=== PATIENT | female | born 1990 | race Caucasian/White ===

== ENCOUNTER 2018-07-23 10:10 | Inpatient (IN) | payer MEDICAID ==
[2018-07-23] MEDS ORDERED: fentaNYL 12 MCG PATCH TD SCH (15:30)
[2018-07-23] MEDS: morphINE SR 15 MG TAB PO SCH ×2 (15:51→21:18)
[2018-07-23] MEDS: oxyCODONE IR 5 MG TAB PO PRN ×2 (15:51→22:55)
--- NOTE | 2018-07-23 16:51 | GHP ---
[f rep st] HISTORY AND PHYSICAL DATE OF ADMISSION: 07/23/2018 TIME OF EVALUATION: 1515 hours. REFERRING FACILITY: [facility]. REFERRING PHYSICIAN: Dr. Bonds IMPAIRMENT GROUP: [id number]. DATE OF ONSET: 07/15/2018. REHABILITATION DIAGNOSIS: Left leg weakness due to cervical spine stenosis status post C5-C6 anterior decompression. ETIOLOGIC DIAGNOSIS: Other nontraumatic spinal cord dysfunction. DATE OF SURGERY: 07/18/2018. HISTORY OF PRESENT ILLNESS: This patient has a history of spina bifida and has chronic weakness and reduced sensation to her bilateral lower extremities. 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 She developed acute onset left lower extremity loss of sensation and weakness, and after 4 days presented to [facility]. She was transferred from there to [facility] for a subspecialty consultation. MRI of the spine revealed cervical spinal stenosis with disk protrusion at the C5-C6 level. Consideration was also given to the possibility of a repeat procedure for tethering of the spinal cord. 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 She opted for cervical spine surgery as it is lower risk than a possible de-tethering procedure and she has had some improvement after this surgery. Surgery was done on 07/18/2018. There were no hospital complications noted. STUDIES AND LABS IN THE HOSPITAL: Urinalysis on 07/16/2018 was consistent with possible UTI. Urine culture grew more than 10,000 CFU per mL of lactobacillus and 1000-10,000 CFU of Staphylococcus species. Prior to her surgery on 2018, coagulation studies revealed normal PT and PTT. Basic metabolic profile was normal, but for a low creatinine at 0.42. CBC was normal. Blood type was O positive. PRECAUTIONS: She is a fall risk. She has orthopedic spinal precautions at the neck. ACTIVE COMORBIDITIES: She has no tier 1, tier 2, or tier 3 active comorbidities. PAST MEDICAL HISTORY: 1. Spina bifida. 2. Pulmonary embolus. 3. Neurogenic bowel and bladder. 4. Cholecystitis. PAST SURGICAL HISTORY: 1. She has had multiple bladder surgeries and she has had lithotripsy for kidney stones. 2. section x3. 3. Cholecystectomy. 4. Hernia repair. 5. Right leg [id number] amputation. 6. Release of tethered spine x4. PRE-HOSPITAL MEDICATIONS: 1. Baclofen 5 mg p.o. b.i.d. 2. Fentanyl transdermal 12 mcg/hour, changed q. 72 hours. 3. Morphine 15 mg p.o. t.i.d. 4. Esomeprazole 20 mg p.o. daily. 5. Oxycodone 5 to 10 mg p.o. t.i.d. p.r.n. 6. Trazodone 50-100 mg p.o. at bedtime. ADMISSION MEDICATIONS: 1. Baclofen 5 mg p.o. b.i.d. 2. Fentanyl transdermal 12 mcg/hour, changed q. 72 hours. 3. Morphine 15 mg p.o. t.i.d. 4. Melatonin 3 mg p.o. At bedtime 5, K-Phos twice daily with meals 6. Esomeprazole 20 mg p.o. daily. 7. Oxycodone 5 to 10 mg p.o. t.i.d. p.r.n. 8. Trazodone 50-100 mg p.o. at bedtime. ALLERGIES: She is allergic to latex and to penicillin, both of which caused anaphylaxis. SOCIAL HISTORY: She is and lives with her . She has a job working at a [employer] center. She is a nonsmoker and nondrinker. She has 3 children at home, aged 3, 6, and 8 years old. FAMILY HISTORY: Noncontributory. There is no history of blood clots. REVIEW OF SYSTEMS: She has some pain with swallowing, but no coughing with swallowing. She takes small bites. Her weight has been stable. She has no fevers or chills. She does not normally require laxatives despite her large opiate dose, though laxatives were being used in the hospital. She has a good appetite. She has no dysuria. She self-catheterizes approximately 6 times a day. She has no headaches; vision changes; weakness, numbness or tingling of the upper extremities. She has noted return of some movement to her left lower extremity with quadriceps extension and hamstring flexion, but she has no flexion at the hip. She sleeps well, does not snore and feels refreshed in the morning. Otherwise, a 10-point review of systems is negative. PHYSICAL EXAM: VITAL SIGNS: Blood pressure 132/82, heart rate 93, respiratory rate 15, oxygen saturation 94% on room air. Temperature 36.9 degrees centigrade. Her weight is not yet available in the chart. GENERAL: This is a well-nourished, well developed, overweight to obese appearing woman sitting in a wheelchair, dressed in street clothes, cooperative, and in no acute distress. HEENT: Extraocular movements are intact. Pupils are equal, round, and reactive to light. Mucous membranes are moist. Dentition is in good condition. She has a crowded airway, Mallampati class 4. NECK: Supple. HEART : There is a regular rate and rhythm with no murmurs, rubs, or gallops. LUNGS : Clear to auscultation bilaterally. ABDOMEN: Soft, nontender, nondistended with normoactive bowel sounds and no hepatosplenomegaly. EXTREMITIES: She has a right leg amputation below the knee. Radial pulses are 2+ bilaterally. Pedal pulses are nonpalpable, but dorsalis pedis pulse can be found by ultrasound. Capillary refill on her foot is prolonged. Her left foot is cold. She has 1+ edema to the left lower extremity. She wears an AFO. NEUROLOGIC: She is alert and oriented x3. Cranial nerves 2-12 are grossly intact. Upper extremities are overall 5/5, though her triceps are approximately 4/5 bilaterally. She appears to have normal movement of the right lower extremity. Left lower extremity does not have antigravity strength at the hip flexor. Her quadriceps is 3/5 to 4/5. Hamstring is 3/5. There is no dorsiflexion or plantar flexion of the foot or great toe. Sensation in the left lower leg is absent over the foot and lower leg, and is present to light palpation starting just above the knee. She reports that this has improved since her surgery with sensory level going further down her leg. SKIN: Neck incision appears to be glued with Steri-Strips. There is no erythema and no discharge. CURRENT LEVEL OF FUNCTION PER THE PREADMISSION SCREEN: She needed setup for feeding. She needed maximal assistance for grooming, maximal assist for bathing , maximal assist for dressing, and maximal assist for toileting. She was able to self-catheterize her bladder. Bed mobility required minimal assist. Transfers bed to wheelchair were done with a lateral scoot with minimal assist. She used a manual wheelchair. Balance seated required standby assist at the edge of the bed. Endurance was decreased from baseline. She was able to self- propel wheelchair 60 feet with standby assist. Communication and cognition were considered to be within normal limits. On today's exam, there are no significant changes from preadmission screen. IMPRESSION: This is a 28-year-old woman with a history of spina bifida and medical complications which have included need for a right foot amputation after a traumatic injury, who developed acute loss of sensation and weakness of the left lower extremity. She reports that it was unclear whether it was due to cervical spinal stenosis at the C5-6 level or complications of tethered spinal cord. She proceeded with C5-C6 anterior cervical decompression and she has had some improvement in her motor symptoms and sensation in the left lower extremity. She has neurogenic bowel and bladder which she manages effectively at home with self-catheterization. She reports she does not need bowel medications at home. She has history of pulmonary embolus and reports that she was on warfarin for several months since occurrence in November of last year, but that it was discontinued partly because of difficulty in maintaining stable INR. She has needs for rehabilitation to optimize her mobility and activities of daily living towards returning to home with a maximum level of independence. She intends to be able to continue caring for her children and to return to work if possible. For safe discharge, she will need to be able to progress to independent to supervision level for ADLs and functional mobility from wheelchair level. She will need to have effective pain and symptom management. She will have therapy with Physical Therapy and Occupational Therapy for 90 minutes per day for each discipline on 5-7 days per week. Her expected duration of stay is 10-14 days. It is expected that after discharge she will benefit from home health with Nursing and Occupational Therapy. PLAN: 1. Debility with left lower extremity weakness and history of right leg below- the-knee amputation status post C5-C6 anterior decompression. She has had some improvement in sensation and movement to the left lower extremity. She will have physical therapy and occupational therapy to optimize her mobility and activities of daily living towards the independent or supervision level from her wheelchair. 2. Postsurgical status. Continue current pain medications and monitor wound for healing. Question of spinal precautions needs to be clarified. 3. Neurogenic bladder. Continue self-catheterization. 4. History of pulmonary embolus. We will treat prophylactically with enoxaparin during her rehab stay. Doubt that will need to be continued after her discharge home, as she will likely be back to her baseline risk. She reports that she had 3 months of warfarin after a pulmonary embolus, but had difficulty with control of INR. 5. Spasticity which affects her left side and her left leg she reports has been effectively treated with baclofen at 5 mg twice daily and this will be continued. 6. Gastroesophageal reflux disorder. Continue esomeprazole. 7. Prophylaxis. We will place on enoxaparin for deep vein thrombosis prophylaxis. She takes esomeprazole for gastroesophageal reflux disorder and this will also serve us for protection against gastrointestinal bleed while on esomeprazole. /[id number]/MODL MTDD
[2018-07-23] MEDS: POTASSIUM PHOSPHATE MONOBASIC PO SCH (17:23)
[2018-07-23] MEDS ORDERED: MELATONIN 3 MG TAB PO SCH (21:00)
[2018-07-23] MEDS: BACLOFEN 10 MG TAB PO SCH (21:18)
[2018-07-23] MEDS: traZODone 50 MG TAB PO PRN (22:54)
[2018-07-24] MEDS: morphINE SR 15 MG TAB PO SCH ×3 (06:49→21:03)
[2018-07-24] MEDS: ENOXAPARIN 40 MG/0.4 ML SYR SC SCH (07:18)
[2018-07-24] MEDS: BACLOFEN 10 MG TAB PO SCH ×2 (08:33→21:04)
[2018-07-24] MEDS: PANTOPRAZOLE SODIUM 40 MG TAB PO SCH (08:33)
[2018-07-24] MEDS: oxyCODONE IR 5 MG TAB PO PRN ×2 (10:13→13:23)
--- NOTE | 2018-07-24 10:54 | SOAPPROG ---
SOAP Progress Note Assessment/Plan: Assessment: Debility with left lower extremity weakness and history of right leg below-the- knee amputation status post C5-C6 anterior decompression. She has had some improvement in sensation and movement to the left lower extremity. She will have physical therapy and occupational therapy to optimize her mobility and activities of daily living towards the independent or supervision level from her wheelchair. Postsurgical status. Continue current pain medications and monitor wound for healing. Discussed question of spinal precautions with Samantha, nurse for neurosurgeon Dr. Bonds, 07/23/2018, . She is allowed gentle range of motion of the neck but no twisting, no bending at the waist, and no lifting greater than 10 lb, until followup with Dr. Bonds in approximately 6 weeks. Pain management. Continue current opiate regimen. Neurogenic bladder. Continue self-catheterization. History of pulmonary embolus. We will treat prophylactically with enoxaparin during her rehab stay. Doubt that will need to be continued after her discharge home, as she will likely be back to her baseline risk. She reports that she had 3 months of warfarin after a pulmonary embolus, but had difficulty with control of INR. Spasticity which affects her left side and her left leg she reports has been effectively treated with baclofen at 5 mg twice daily and this will be continued. Gastroesophageal reflux disorder. Continue pantoprazole. No indication for continued potassium phosphate supplement. Discontinue starting 07/23/2018. Prophylaxis. We will place on enoxaparin for deep vein thrombosis prophylaxis. She takes esomeprazole for gastroesophageal reflux disorder and this will also serve us for protection against gastrointestinal bleed while on esomeprazole. Pantoprazole has been substituted per hospital formulary. Follow-up. She is to see neurosurgeon Dr. Bonds in approximately 6 weeks ( approximately 09/03/2018). She has an appointment for evaluation for a new wheelchair on 07/31/2018. 07/24/18 11:42 Subjective: Had poor sleep overnight. She found her usual side-lying sleeping position to be uncomfortable on her neck. For she tried melatonin which had no affect, then she took 50 mg of trazodone. She had fatigue this morning. This evening she plans to take 100 mg of trazodone. Discussed prescription for potassium phosphate. She says that it was prescribed during her when she had a low potassium, and she has continued since then. Otherwise without complaints. No fevers or chills, no cough or dyspnea. Objective: Vital Signs Temp Pulse Resp BP Pulse Ox 36.7 C 84 15 124/75 H 94 07/24/18 06:02 07/24/18 06:02 07/24/18 06:02 07/24/18 06:02 07/24/18 06:02 07/23/18 07/24/18 07/25/18 05:59 05:59 05:59 Intake Total 590 125 Output Total 825 125 Balance -235 0 Physical Exam - Physical Exam General Appearance: WD/WN, alert, no apparent distress Respiratory: normal breath sounds, crackles (Right lower lobe), No rhonchi, No wheezing Cardiac/Chest: regular rate, rhythm, No diastolic murmur, No systolic murmur Skin: normal color, warm/dry, other (Neck incision without erythema or drainage) Neuro/Psych: alert, normal mood/affect, oriented x 3, other (Self propels wheelchair independently) ICD10 Worksheet Patient Problems: Problems Problem Status Onset History of cervical spinal surgery Acute Left leg weakness Acute Spina bifida Acute - ICD10 Problem Qualifiers (1) Left leg weakness (2) History of cervical spinal surgery (3) Spina bifida
[2018-07-24] MEDS: POTASSIUM PHOSPHATE MONOBASIC PO SCH (12:24)
[2018-07-24] MEDS: traZODone 50 MG TAB PO PRN (21:03)
[2018-07-25] MEDS: oxyCODONE IR 5 MG TAB PO PRN ×2 (03:22→12:23)
[2018-07-25] MEDS: ENOXAPARIN 40 MG/0.4 ML SYR SC SCH (07:16)
[2018-07-25] MEDS: fentaNYL 12 MCG PATCH TD SCH (08:58)
[2018-07-25] MEDS: BACLOFEN 10 MG TAB PO SCH ×2 (09:02→20:45)
[2018-07-25] MEDS: PANTOPRAZOLE SODIUM 40 MG TAB PO SCH (09:03)
[2018-07-25] MEDS: morphINE SR 15 MG TAB PO SCH ×3 (09:03→22:05)
--- NOTE | 2018-07-25 09:58 | SOAPPROG ---
SOAP Progress Note Assessment/Plan: Assessment: Debility with left lower extremity weakness and history of right leg below-the- knee amputation status post C5-C6 anterior decompression. She has had some improvement in sensation and movement to the left lower extremity. * Initial functional independence measure is 98 on 07/25/2018. She transfers with a sliding board with standby assist. The sliding board is a new technique for her. She is modified independence for bed mobility. She is able to stand 15 sec with standby assist and a front wheeled walker. She required contact guard assist for shower transfer and is otherwise standby assist for ADLs except for eating in which she is independent. * Continue physical therapy and occupational therapy to optimize her mobility and activities of daily living towards the independent or supervision level from her wheelchair. Postsurgical status. Continue current pain medications and monitor wound for healing. Discussed question of spinal precautions with Samantha, nurse for neurosurgeon Dr. Bonds, 07/23/2018, . She is allowed gentle range of motion of the neck but no twisting, no bending at the waist, and no lifting greater than 10 lb, until followup with Dr. Bonds in approximately 6 weeks. Pain management. Continue current opiate regimen. Neurogenic bladder. Continue self-catheterization. History of pulmonary embolus. We will treat prophylactically with enoxaparin during her rehab stay. Doubt that will need to be continued after her discharge home, as she will likely be back to her baseline risk. She reports that she had 3 months of warfarin after a pulmonary embolus in November of 2017 , but had difficulty with control of INR. Spasticity which affects her left side and her left leg she reports has been effectively treated with baclofen at 5 mg twice daily and this will be continued. Gastroesophageal reflux disorder. Continue pantoprazole. No indication for continued potassium phosphate supplement. Discontinue starting 07/23/2018. Prophylaxis. We will place on enoxaparin for deep vein thrombosis prophylaxis. She takes esomeprazole for gastroesophageal reflux disorder and this will also serve us for protection against gastrointestinal bleed while on esomeprazole. Pantoprazole has been substituted per hospital formulary. DISPOSITION: Attended staffing, 15 min, 07/25/2018. Discussed with nursing, case management, dietitian, PT, OT. She lives at home with her who does not work but assists in childcare. Her [id number] is there also provides considerable assistance. Their 3 children aged 8 6 and 3 years old. Plan for discharge home with assistance from family on 07/28/2018. Follow-up. She is to see neurosurgeon Dr. Bonds in approximately 6 weeks ( approximately 09/03/2018). She has an appointment for evaluation for a new wheelchair on 07/31/2018. JUSTIFICATION FOR SLIDING BOARD: This patient needs a sliding board due to left lower extremity weakness and right lower extremity amputation. 07/25/18 12:22 Subjective: No complaints. She reports pain is with swallowing is improved but she is still cutting her food into small bites. She slept well last night. No cough or dyspnea, no fevers or chills. Objective: Vital Signs Temp Pulse Resp BP Pulse Ox 36.9 C 88 18 104/67 96 07/25/18 06:08 07/25/18 06:08 07/25/18 06:08 07/25/18 06:08 07/25/18 06:08 07/24/18 07/25/18 07/26/18 05:59 05:59 05:59 Intake Total 590 1050 150 Output Total 825 1025 75 Balance -235 25 75 - Time Spent With Patient Time Spent With Patient: Greater than 35 min floor time today, including more than 50% of time in coordination of care during staffing meeting, and counseling patient. Physical Exam - Physical Exam General Appearance: WD/WN, alert, no apparent distress Respiratory: normal breath sounds, No crackles, No rhonchi, No wheezing Cardiac/Chest: regular rate, rhythm, edema (Minimal edema verses pretibial fat, left lower leg.), No diastolic murmur, No systolic murmur Skin: normal color, warm/dry, other (Incision without erythema or drainage) Neuro/Psych: alert, normal mood/affect, oriented x 3 (Continues to have improved left quadriceps strength. Left hip flexor is 0 to 1/5) ICD10 Worksheet Patient Problems: Problems Problem Status Onset History of cervical spinal surgery Acute Left leg weakness Acute Spina bifida Acute - ICD10 Problem Qualifiers (1) Left leg weakness (2) History of cervical spinal surgery (3) Spina bifida
--- NOTE | 2018-07-25 10:33 | PDOREHIP ---
Admission [facility] - Admission - 3 Day Assessment Period Admission Date/Day 1: 07/23/18 Day 2: 07/24/18 Day 3: 07/25/18 - Active Diagnoses Comorbidities and Co-existing Conditions at Admission: 76738. None of the Above - Skin Conditions Unhealed Pressure Ulcer (1 or more/Stage 1 or >)-Admission: 0. No # Stage 1 Pressure Ulcers-Admission: 0 # Stage 2 Pressure Ulcers-Admission: 0 # Stage 3 Pressure Ulcers-Admission: 0 # Stage 4 Pressure Ulcers-Admission: 0 # Unstageable Pressure Ulcers (Non-remove Dress)-Admission: 0 # Unstageable Pressure Ulcers (Slough/Eschar)-Admission: 0 # Unstageable Pressure Ulcers (Deep Tissue Injury)-Admission: 0
[2018-07-25] MEDS: traZODone 50 MG TAB PO PRN (20:45)
[2018-07-25] MEDS: MELATONIN 3 MG TAB PO PRN (22:06)
[2018-07-26] MEDS: oxyCODONE IR 5 MG TAB PO PRN ×3 (04:02→18:04)
[2018-07-26] MEDS: BACLOFEN 10 MG TAB PO SCH ×2 (07:54→20:31)
[2018-07-26] MEDS: PANTOPRAZOLE SODIUM 40 MG TAB PO SCH (07:54)
[2018-07-26] MEDS: ENOXAPARIN 40 MG/0.4 ML SYR SC SCH (07:55)
[2018-07-26] MEDS: morphINE SR 15 MG TAB PO SCH ×3 (07:55→22:06)
--- NOTE | 2018-07-26 08:48 | SOAPPROG ---
SOAP Progress Note Assessment/Plan: Assessment/Plan: Debility with left lower extremity weakness and history of right leg below-the- knee amputation status post C5-C6 anterior decompression. She has had some improvement in sensation and movement to the left lower extremity. * Initial functional independence measure is 98 on 07/25/2018. She transfers with a sliding board with standby assist. The sliding board is a new technique for her. She is modified independence for bed mobility. She is able to stand 15 sec with standby assist and a front wheeled walker. She required contact guard assist for shower transfer and is otherwise standby assist for ADLs except for eating in which she is independent. * Continue physical therapy and occupational therapy to optimize her mobility and activities of daily living towards the independent or supervision level from her wheelchair. Postsurgical status. Continue current pain medications and monitor wound for healing. Discussed question of spinal precautions with Samantha, nurse for neurosurgeon Dr. Bonds, 07/23/2018, . She is allowed gentle range of motion of the neck but no twisting, no bending at the waist, and no lifting greater than 10 lb, until followup with Dr. Bonds in approximately 6 weeks. Pain management. Continue current opiate regimen. Neurogenic bladder. Continue self-catheterization. History of pulmonary embolus. We will treat prophylactically with enoxaparin during her rehab stay. Doubt that will need to be continued after her discharge home, as she will likely be back to her baseline risk. She reports that she had 3 months of warfarin after a pulmonary embolus in November of 2017 , but had difficulty with control of INR. Spasticity which affects her left side and her left leg she reports has been effectively treated with baclofen at 5 mg twice daily and this will be continued. Gastroesophageal reflux disorder. Continue pantoprazole. No indication for continued potassium phosphate supplement. Discontinue starting 07/23/2018. Prophylaxis. We will place on enoxaparin for deep vein thrombosis prophylaxis. She takes esomeprazole for gastroesophageal reflux disorder and this will also serve us for protection against gastrointestinal bleed while on esomeprazole. Pantoprazole has been substituted per hospital formulary. DISPOSITION: Discussed with nursing, She lives at home with her who does not work but assists in childcare. Her [id number] is there also provides considerable assistance. Their 3 children aged 8 6 and 3 years old. Plan for discharge home with assistance from family on 07/28/2018. Follow-up. She is to see neurosurgeon Dr. Bonds in approximately 6 weeks ( approximately 09/03/2018). She has an appointment for evaluation for a new wheelchair on 07/31/2018. 07/26/18 08:45 Subjective: Feeling pretty good this morning. Is reporting slight increase in spasm - only at night. otherwise has only seen improvement in her neurologic status since the cervical ACDF. Anxious to get back home to her children and her . Feels this has been good to learn some new techniques regarding transfers. managing bowel/bladder well. Objective: Vital Signs Temp Pulse Resp BP Pulse Ox 98.3 F 84 15 140/86 H 96 07/26/18 06:27 07/26/18 06:27 07/26/18 06:27 07/26/18 06:27 07/26/18 06:27 07/25/18 07/26/18 07/27/18 05:59 05:59 05:59 Intake Total 1050 670 Output Total 1025 800 125 Balance 25 -130 -125 Physical Exam - Physical Exam General Appearance: alert, no apparent distress EENT: PERRL/EOMI, other (mmm) Respiratory: other (Non labored breathing, no audible wheezing) Cardiac/Chest: regular rate, rhythm Abdomen: non-tender Skin: normal color Extremities: other (Right BKA) Neuro/Psych: alert, normal mood/affect ICD10 Worksheet Patient Problems: Problems Problem Status Onset History of cervical spinal surgery Acute Left leg weakness Acute Spina bifida Acute
[2018-07-26] MEDS ORDERED: BACLOFEN 10 MG TAB PO SCH ×2 (09:00→21:00)
[2018-07-26] MEDS: MELATONIN 3 MG TAB PO PRN (20:30)
[2018-07-26] MEDS: traZODone 50 MG TAB PO PRN ×2 (20:30→22:08)
[2018-07-27] MEDS: oxyCODONE IR 5 MG TAB PO PRN ×2 (06:03→13:31)
[2018-07-27] MEDS: morphINE SR 15 MG TAB PO SCH ×3 (08:52→21:16)
[2018-07-27] MEDS: BACLOFEN 10 MG TAB PO SCH ×2 (08:52→21:16)
[2018-07-27] MEDS: PANTOPRAZOLE SODIUM 40 MG TAB PO SCH (08:52)
[2018-07-27] MEDS: ENOXAPARIN 40 MG/0.4 ML SYR SC SCH (08:53)
--- NOTE | 2018-07-27 09:10 | SOAPPROG ---
SOAP Progress Note Assessment/Plan: Assessment/Plan: #Debility with left lower extremity weakness and history of right leg below-the- knee amputation status post C5-C6 anterior decompression. She has had some improvement in sensation and movement to the left lower extremity. * Initial functional independence measure is 98 on 07/25/2018. She transfers with a sliding board with standby assist. The sliding board is a new technique for her. She is modified independence for bed mobility. She is able to stand 15 sec with standby assist and a front wheeled walker. She required contact guard assist for shower transfer and is otherwise standby assist for ADLs except for eating in which she is independent. * Continue physical therapy and occupational therapy to optimize her mobility and activities of daily living towards the independent or supervision level from her wheelchair. #Postsurgical status. * Continue current pain medications and monitor wound for healing. * Discussed question of spinal precautions with Samantha, nurse for neurosurgeon Dr. Bonds, 07/23/2018, . She is allowed gentle range of motion of the neck but no twisting, no bending at the waist, and no lifting greater than 10 lb , until followup with Dr. Bonds in approximately 6 weeks. #Pain management * Continue current opiate regimen. * Added Voltaren Gel for LLE #Neurogenic bladder. * Continue self-catheterization - Going well without concerns History of pulmonary embolus * enoxaparin during her rehab stay. Doubt that will need to be continued after her discharge home, as she will likely be back to her baseline risk. She reports that she had 3 months of warfarin after a pulmonary embolus in November of 2017, but had difficulty with control of INR. Spasticity - affects her left leg mostly * Increased Baclofen to 5mg qam and then 10mg qpm * May trial a small dose gabapentin at night to help with the spasm * Will also add Voltaren Gel Gastroesophageal reflux disorder. * pantoprazole. No indication for continued potassium phosphate supplement. * Discontinued 07/23/2018. Prophylaxis. We will place on enoxaparin for deep vein thrombosis prophylaxis. She takes esomeprazole for gastroesophageal reflux disorder and this will also serve us for protection against gastrointestinal bleed while on esomeprazole. Pantoprazole has been substituted per hospital formulary. DISPOSITION: Discussed with nursing, She lives at home with her who does not work but assists in childcare. Her [id number] is there also provides considerable assistance. Their 3 children aged 8 6 and 3 years old. Plan for discharge home with assistance from family on 07/28/2018. Follow-up. She is to see neurosurgeon Dr. Bonds in approximately 6 weeks ( approximately 09/03/2018). She has an appointment for evaluation for a new wheelchair on 07/31/2018. 07/27/18 09:03 Subjective: Doing pretty well today - Did have a bit of a rougher night last night with spasms. [place] she potentially "overdid" it yesterday with therapy. Hasn't had that much therapy to the left leg for a long time. [place] like she was able to localize pain much better than she's ever been able to do before. no fevers/ chills. Excited about her upcoming discharge Objective: Vital Signs Temp Pulse Resp BP Pulse Ox 97.9 F 75 16 117/69 96 07/27/18 05:51 07/27/18 05:51 07/27/18 05:51 07/27/18 05:51 07/27/18 05:51 07/26/18 07/27/18 07/28/18 05:59 05:59 05:59 Intake Total 670 710 Output Total 800 725 Balance -130 -15 Physical Exam - Physical Exam General Appearance: alert, no apparent distress EENT: PERRL/EOMI Neck: other (Steristrips on the anterior neck. Well healing incision without evidence of infection) Respiratory: other (non labored breathing) Cardiac/Chest: regular rate, rhythm Abdomen: non-tender, soft Skin: normal color, warm/dry Extremities: other (Right BKA) Neuro/Psych: normal mood/affect ICD10 Worksheet Patient Problems: Problems Problem Status Onset History of cervical spinal surgery Acute Left leg weakness Acute Spina bifida Acute
[2018-07-27] MEDS ORDERED: DICLOFENAC SODIUM 1% 100 GM GEL TP PRN (09:20)
[2018-07-27] MEDS ORDERED: GABAPENTIN 300 MG CAP PO SCH (21:00)
[2018-07-27] MEDS: traZODone 50 MG TAB PO PRN (21:16)
[2018-07-28] MEDS: oxyCODONE IR 5 MG TAB PO PRN ×2 (05:54→11:40)
[2018-07-28 07:39] VITALS: BP 133/80
[2018-07-28] MEDS: fentaNYL 12 MCG PATCH TD SCH (08:07)
[2018-07-28] MEDS: BACLOFEN 10 MG TAB PO SCH (08:08)
[2018-07-28] MEDS: PANTOPRAZOLE SODIUM 40 MG TAB PO SCH (08:09)
[2018-07-28] MEDS: morphINE SR 15 MG TAB PO SCH (08:09)
[2018-07-28] MEDS: ENOXAPARIN 40 MG/0.4 ML SYR SC SCH (09:51)
--- NOTE | 2018-07-28 11:08 | PDOREHIP ---
Admission [facility] - Admission - 3 Day Assessment Period Admission Date/Day 1: 07/23/18 Day 2: 07/24/18 Day 3: 07/25/18 - Active Diagnoses Comorbidities and Co-existing Conditions at Admission: 39512. None of the Above Discharge [facility] - Discharge - 3 Day Assessment Period 2 Days Prior to Anticipated Discharge Date: 07/26/18 1 Day Prior to Anticipated Discharge Date: 07/27/18 Anticipated Discharge Date: 07/28/18 - Discharge Skin Conditions Unhealed Pressure Ulcer (1 or more/Stage 1 or >)-Discharge: 0. No # Stage 1 Pressure Ulcers-Discharge: 0 # Stage 2 Pressure Ulcers-Discharge: 0 # of These Stage 2 Pressure Ulcers Present on Admission: 0 # Stage 3 Pressure Ulcers-Discharge: 0 # of These Stage 3 Pressure Ulcers Present on Admission: 0 # Stage 4 Pressure Ulcers-Discharge: 0 # of These Stage 4 Pressure Ulcers Present on Admission: 0 # Unstageable Pressure Ulcers (Non-remove Dress)-Discharge: 0 # These Unstageable Pressure Ulcers (NRD)-Present on Admit: 0 # Unstageable Pressure Ulcers (Slough/Eschar)-Discharge: 0 # These Unstageable Pressure Ulcers(Slough) Present on Admit: 0 # Unstageable Pressure Ulcers (Deep Tissue Injury)-Discharge: 0 # These Unstageable Pressure Ulcers (DTI) Present on Admit: 0
--- NOTE | 2018-07-28 20:53 | GDS ---
[f rep st] DISCHARGE SUMMARY ADMITTING DIAGNOSIS: Left lower extremity weakness, status post C5-6 anterior cervical diskectomy and fusion DISCHARGE DIAGNOSIS: Left lower extremity weakness, status post C5-6 anterior cervical diskectomy and fusion. OTHER DISCHARGE DIAGNOSES: 1. History of right lower extremity [id number] amputation. 2. Chronic pain. 3. Neurogenic bladder. 4. History of pulmonary embolus. 5. Gastroesophageal reflux disorder. COMPLICATIONS: None. CONSULTATIONS: None. PROCEDURES: None. HISTORY AND HOSPITAL COURSE: This patient was admitted from [facility] where she had a C5-C6 ACDF per neurosurgeon, Dr. Bonds, for left leg weakness. She has a history of spina bifida and has had 4 prior detethering procedures for her lumbar spine. She reports that she elected this C5-6 ACDF rather than a detethering procedure due to the lower- risk nature of the cervical surgery. She had some improvement in her left leg strength after the surgery. There were no postoperative complications; however , she was diagnosed with a urinary tract infection and was treated during her hospitalization. Urine culture results had shown more than 10,000 CFU per mL of lactobacillus and 1,000 to 10,000 CFU per mL of staphylococci species. She did well in rehabilitation. Her goal was to improve her transfers, and she learned how to transfer with a sliding board. She developed independence with bed mobility and transfers using a sliding board. She was able to self-propel a wheelchair as far as 400 feet on level and unlevel surfaces both inside and outside independently. She was able to carry out activities of daily living with independence or modified independence using assistive devices. She continued her outpatient opiate regimen for chronic pain, as well as baclofen and gabapentin, and had adequate control of her pain. She did self-catheterization for her neurogenic bladder with no complications. She was treated with enoxaparin for DVT prophylaxis during her rehabilitation stay. She previously had been treated with warfarin for a pulmonary embolus that was diagnosed in November of 2017. She reports this had been discontinued after 3 months and that she had difficulty with maintaining a stable INR. At the end of her rehabilitation stay, she was at her baseline risk for pulmonary embolus, and anticoagulation was not continued. She can follow up with her primary care provider to consider longer-term anticoagulation. DISCHARGE PLAN: CONDITION: Good. DISPOSITION: Home with her family. DIET: Regular. ACTIVITY: Ad chiquita. ALLERGIES: Latex and penicillin. There were no new drug allergies noted during her stay. MEDICATIONS UPON DISCHARGE: 1. Baclofen 5 mg p.o. b.i.d. and 10 mg at h.s. 2. Diclofenac 1% 4 g topical q.i.d. p.r.n. 3. Esomeprazole 20 mg p.o. daily. 4. Fentanyl transdermal 12 mcg changed q. 72 hours. 5. Gabapentin 300 mg p.o. q.h.s. 6. Melatonin 3 mg p.o. q.h.s. 7. Morphine SR 50 mg p.o. t.i.d. 8. Oxycodone 5 to 10 mg p.o. q.3 hours p.r.n. 9. Trazodone 50 to 100 mg p.o. q.h.s. ISSUES TO BE ADDRESSED AT FOLLOWUP: 1. Mobility and activities of daily living. She will have outpatient PT. 2. Post C-spine surgery, she will follow up with neurosurgeon, Dr. Bonds, 6 weeks after her surgery, which would be approximately 09/03/2018. 3. She has an appointment for assessment for a new wheelchair on 07/31/2018. Copy requested to: Dr. Gary Bonds [facility] /[id number]/MODL MTDD
== END 2018-07-28 11:55 | disposition home or self-care (01) | DRG 862 ==
LOC: F3E 14:31
PROVIDERS: ADMIT Internal Medicine Hospice and Palliative Medicine; ATTEND Internal Medicine Hospice and Palliative Medicine
PROC: F07M3ZZ Motor Function Treatment of Musculoskeletal System - Whole Body (ICD-10-PCS; principal; 2018-07-23)
PROC: F08Z7ZZ Vocational Activities and Functional Community or Work Reintegration Skills Treatment (ICD-10-PCS; principal; 2018-07-23)
PROC: F0636ZZ Communicative/Cognitive Integration Skills Treatment of Neurological System - Whole Body (ICD-10-PCS; principal; 2018-07-23)
DX: Z48.811 Encounter for surgical aftercare following surgery on the nervous system (principal); K59.2 Neurogenic bowel, not elsewhere classified; Q05.9 Spina bifida, unspecified; N31.9 Neuromuscular dysfunction of bladder, unspecified; R25.2 Cramp and spasm; K21.9 Gastro-esophageal reflux disease without esophagitis; Z98.1 Arthrodesis status; Z89.431 Acquired absence of right foot; Z86.711 Personal history of pulmonary embolism
CPT/HCPCS: 97110-GO; 97110-GP; 97112-GP; 97163-GP; 97166-GO; 97530-GO; 97530-GP; 97535-GO; 97542-GP; J1650